=== PATIENT | female | born 1985 | race Two or more races ===

== ENCOUNTER 2017-09-03 06:36 | Day surgery (SDC) | payer SELFPAY ==
[~2017-09-03] VITALS: Ht 154.9 cm; Wt 84.4 kg
[~2017-09-03 06:36] MED LIST: ACET325; CEPH500 PO; CETYLOZ PO; HYDACE5 PO; IBUP600 PO; METPRE4DP PO; ONDA4ODT MM; Phentermine HCl30 MG; SULTRIDS PO; Ventolin/Prove6.7 GM INH
[2017-09-03] MEDS ORDERED: PANT40 (07:20)
[2017-09-03] MEDS ORDERED: RANI150 (07:21)
== END 2017-09-03 08:57 | disposition home or self-care (01) ==
LOC: ORSCSDS
PROVIDERS: Internal Medicine Gastroenterology
PROC: 0DB58ZX Excision of Esophagus, Via Natural or Artificial Opening Endoscopic, Diagnostic (ICD-10-PCS; principal; 2017-09-03 08:00)
PROC: 0DB68ZX Excision of Stomach, Via Natural or Artificial Opening Endoscopic, Diagnostic (ICD-10-PCS; principal; 2017-09-03 08:00)
PROC: 0D748ZZ Dilation of Esophagogastric Junction, Via Natural or Artificial Opening Endoscopic (ICD-10-PCS; principal; 2017-09-03 08:00)
DX: R13.10 Dysphagia, unspecified (principal); K20.9 Esophagitis, unspecified; K29.70 Gastritis, unspecified, without bleeding; K21.9 Gastro-esophageal reflux disease without esophagitis; R10.11 Right upper quadrant pain; F32.9 Major depressive disorder, single episode, unspecified; R11.2 Nausea with vomiting, unspecified; E66.9 Obesity, unspecified; Z68.35 Body mass index [BMI] 35.0-35.9, adult; Z79.899 Other long term (current) drug therapy
CPT/HCPCS: 88305; 88342; J0330; J1980; J2405